=== PATIENT | male | born 1940 | race Caucasian/White ===

== ENCOUNTER 2025-02-12 14:52 | Outpatient (AMB) | payer MEDICARE, SELFPAY ==
--- NOTE | 2025-02-12 14:56 | MHC.OFFVIS ---
Vital Signs 02/12/25 14:59 Height 5 ft 8 in Weight 126 lb BMI 19.2 BP 117/56 L Blood Pressure Location Lt brachial Position Sitting Respiration 16 Pulse 67 Pulse Source Pulse Oximeter Pulse Oximetry (%) 97 Oxygen Delivery Method Room Air Intake Visit Reasons: cervical foraminal stenosis Communication Spec Required: No Accompanied by: Self / Same As Patient Allergies No Known Allergies Allergy (Verified 02/12/25 14:57) HPI Comments Details: Александр is very pleasant 84 years old gentleman who presents in my office with no pain complaints. He reports minor stiffness in the neck in the morning on the right side. He reports that he experiences tremor for 3 years in the right upper extremity. He said that he went for the MRI and on the MRI nerve root compression was detected. He denies numbness or weakness in bilateral upper extremities, he denies pain radiating into bilateral upper extremities. He also reports that from time to time he needs to maintain the balance by placing of the left hand on the wall next to him. He is not able to sleep normally but it is not related to the pain. He can - do activities of daily living, he is able to take care of himself and he is able to function normally he is retired individual. In terms of tissue damage he describes his conception as dull, tiring and tight sensation. He is taking gabapentin 300 mg 3 times a day and turmeric 500 mg once a day. He had multiple images at [facility] he will sign medical information release note today and we will obtain those images. He had physical therapy at [facility] however he did not feel any improvement. Unfortunately that physical therapy was not strictly focused on his neck, this physical therapy also was not accompanied by home exercise program. He never received any injections. Past medical history significant for fatigue dizziness and fainting history of alcohol history of heart murmur secondary to aortic stenosis, history of kidney stones. He is smoking 1 pack per day. He denies drinking alcohol at this time. He has history of alcohol rehabilitation. Review of Systems Const All systems reviewed & are unremarkable except as noted in HPI and below ENT Reports Normal hearing present Neuro Reports Normal hearing present, Denies Abnormal speech present, Denies confusion and Denies Sensory deficit (Neuro) Psych Denies confusion Physical Exam Vital Signs: Last Vital Signs Pulse 67 02/12/25 14:59 Resp 16 02/12/25 14:59 BP 117/56 L 1015/25 14:59 Pulse Ox 97 02/12/25 14:59 Oxygen Delivery Method Room Air 02/12/25 14:59 BMI result Body Mass Index 19.2 Const General: no acute distress; No confusion Orientation/consciousness: patient oriented x3 and No confusion Eyes General: appearance normal, both eyes and all related structures Pupils: Equal, round and reactive pupils present EOM: EOMs intact bilaterally Neck Other: Negative Spurling test, negative Lhermitte test, negative Valsalva maneuver, equal and symmetrical strength of bilateral upper and lower extremities, denies any numbness in bilateral upper and lower extremities. 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 Chest Chest palpation & inspection: normal inspection of the chest Resp Effort & Inspection: normal respiratory effort, able to speak in complete sentences, normal respiratory pattern, no audible wheezes and no cough Cardio Jugular venous distension: no JVD GI Inspection: Yes normal to inspection Neuro Other: Report intermittent tremor in the right upper extremity right hand. General: patient oriented x3, gait normal and No confusion Cranial nerves: Yes CN's II-XII intact bilaterally, Yes Equal, round and reactive pupils present, Yes Normal hearing present and Yes Ability to bilaterally elevate shoulders present Speech: No Abnormal speech present Gait exam (Neuro): Normal gait present Motor exam (neuro): 5/5 motor strength present throughout Sensory Exam: No Sensory deficit (Neuro) Extrem General: No pedal edema Psych Speech and movement: Normal speech and movement present Affect: normal affect Attitude: cooperative Thought process: Normal thought process present Thought content: Normal thought content present Insight: Good insight present (Psych) Judgement: Good judgement present (Psych) Assessment & Plan Assessment & Plan (1) Parkinson disease: Code(s): G20.A1 - Parkinson's disease without dyskinesia, without mention of fluctuations Category: Medical (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 In fact he denies pain at all. He admits minor discomfort in the right neck only in the morning. I think it is coming from spondylosis of the cervical spine. The foraminal stenosis may have presence on the MRI of this patient however on physical exam there is no evidence of nerve roots compromise. The tremor of the right upper extremity maybe related to Parkinson's disease. Patient is already referred to neurologist and awaiting an appointment with a neurologist. I will send this patient for the physical therapy and I will recommend our physical therapy to perform exercises focused on proper maintenance of cervical lordosis and improvement of the cervical mobility as well as improvement of the multifidus and interscalene muscles of the neck. Orders: Orders PT Evaluation and Treatment Today M47.812 - Spondylosis without myelopathy or radiculopathy, cervical region Patient Instructions: I here by testify that I spent 45 minutes in conversation with this patient as well as planning his care and organizing this note. Coding Level of Care Code New Pt Level 4 (31308) Diagnoses Parkinson disease G20.A1 Spondylosis of cervical region without myelopathy or radiculopathy M47.812
[2025-02-12 14:59] VITALS: BP 117/56; PULSE 67; RESP 16; O2SAT 97; BMI 19.2
== END 2025-02-12 15:24 | disposition home or self-care (01) ==
PROVIDERS: PCP Internal Medicine; Visit Provider Anesthesiology
DX: G20.A1 Parkinson's disease without dyskinesia, without mention of fluctuations (principal); M47.812 Spondylosis without myelopathy or radiculopathy, cervical region
CPT/HCPCS: 99204

== ENCOUNTER → 2025-02-12 14:52 | Outpatient (BNVA) | payer MEDICARE, SELFPAY | PROVIDERS: PCP Internal Medicine; Visit Provider Anesthesiology | DX: M47.812 Spondylosis without myelopathy or radiculopathy, cervical region (principal); G20.A1 Parkinson's disease without dyskinesia, without mention of fluctuations | CPT/HCPCS: 99202 ==